=== PATIENT | female | born 1935 | race Caucasian/White ===

== ENCOUNTER 2017-03-13 05:25 | Emergency (ER) | payer OTHER ==
[~2017-03-13] VITALS: Ht 152.4 cm; Wt 61.2 kg
[~2017-03-13 05:25] MED LIST: ACETAMINOPHEN650 M5 PO; ADULT LOW DOSE81 MG PO; AMOXICILLIN500 M1 PO; ASPIRIN EC81 M1 PO; AUGMENTIN 875875 M1 PO; B12INJ IM; BONIVA150 MG PO; CARVEDILOL25 MG PO; CARVEDILOL6.25 MG PO; CEFTIN500 MG PO; CIPRO HC OTIC S10 ML OTIC; CRESTOR20 MG PO; DARVOCET-N 1001 EAC1 PO; FISH OIL 1,001000 MG PO; FISH OIL 500 M1 EACH PO; FUROSEMIDE 40 M40 M1 PO; HIBICLENS120 ML TP; HYDROCODON-ACE1 EAC7 PO; K-DUR 20 MEQ T20 MEQ PO; LEVOTHYROXIN0.025 MG PO; LIDODERM 5%1 PATCH TOP; LIPITOR 10 MG10 M1 PO; LISINOPRIL40 MG PO; LIVALO2 MG PO; MAG-OX 400 TAB400 MG PO; MAGNESIUM250 M1 PO; MEDROLDOSEPACK PO; NORVASC 5 MG TAB5 MG PO; OMEGA-3 + VITA1 EAC1 PO; OMEGA-31000 M1 PO; OMEGA-31000 MG PO; POTASSIUM20 PO; PREDNISONE 10 M10 M1 PO; PROAIR HFA8.5 GM IH; PROTONIX40 M1 PO; PROTONIX40 M2 PO; SYMBICORT160 MCG/4. INH; SYNTHROID25 MCG PO; TRAMADOL 50 MG50 MG PO; ULTRAM 50MG TAB50 MG PO; VERAPAMIL E.R240 M1 PO; VITAMIN D1000 UNI1 PO; XANAX 0.25 MG0.25 MG PO; XOPENEX 0.63 MG/3 ML IH; ZOFRAN4 MG PO; ZPAK PO; [UNRECOGNIZED DRUG - OTHER]
[2017-03-13 05:52] LABS: ABSOLUTE BASOPHILS 0.1 thou/uL (0.0-0.2); ABSOLUTE EOSINOPHILS 0.2 thou/uL (0.0-0.7); ABSOLUTE LYMPHOCYTES 1.5 thou/uL (0.8-5.3); ABSOLUTE MONOCYTES 0.7 thou/uL (0.0-1.2); ABSOLUTE NEUTROPHILS 6.2 thou/uL (1.6-8.1); BASOPHILS 1.1 %; EOSINOPHILS 2.1 %; HEMATOCRIT 43.9 % (37.0-47.0); HEMOGLOBIN 14.1 gm/dL (12.0-15.0); LYMPHOCYTES 17.1 %; MCH 29.4 pg (26.0-34.0); MCHC 32.1 g/dL (28.0-37.0); MCV 91.4 fL (80.0-100.0); MONOCYTES 7.8 %; MPV 9.3 fl. (7.2-11.1); NUCLEATED RBCS 0 /100WBC; PLATELET COUNT* 238 thou/uL (150-400); POLYS 71.9 %; WBC 8.6 thou/uL (4.0-11.0)
[2017-03-13 06:03] LABS: ANION GAP 6 mmol/L (7-16); CHLORIDE 101 mmol/L (98-107); CO2 30 mmol/L (21-32); CREATININE 0.9 mg/dL (0.6-1.3); GLUCOSE 109 mg/dL (70-99); POTASSIUM 4.4 mmol/L (3.5-5.1); SODIUM 137 mmol/L (136-145)
[2017-03-13 06:06] LABS: APTT 28.3 Seconds (25.0-31.3); INR 1.1
[2017-03-13 06:13] LABS: ALKALINE PHOSPHATASE 71 U/L (46-116); NT-PRO BRAIN NAT PEPTIDE 1354 pg/mL (<300); SGOT 20 U/L (15-37); SGPT 16 U/L (30-65); TOTAL BILIRUBIN 0.5 mg/dL (<0.1-1.0); TOTAL PROTEIN 6.9 g/dL (6.4-8.2); TROPONIN-I LEVEL <0.06 ng/mL (<0.06)
[2017-03-13 06:21] LABS: ALBUMIN 3.5 g/dL (3.4-5.0); BUN 12 mg/dL (7-18); CALCIUM 9.4 mg/dL (8.5-10.1); LIPASE 245 U/L (73-393)
[2017-03-13] MEDS ORDERED: ZPAK PO (06:26)
[2017-03-13] MEDS ORDERED: PREDNISONE 20 M20 M1 PO (06:26)
[2017-03-13] MEDS ORDERED: VENTOLIN HFA 1818 GM INH (06:28)
[2017-03-13 06:47] VITALS: BP 144/81
--- NOTE | 2017-03-13 14:45 | EKG ---
[place] [address] ELECTROCARDIOGRAM REPORT Name: ARLENE RAM Room: [facility]#: [id number] Admission: 03/13/17 Attend Phys: Discharge: 03/13/17 Date of : 39 Report #: [id number] THIS REPORT FOR: //name// [facility] ED Test Date: 2017-03-13 Test Time: 05:47:23 Pat Name: ARLENE RAM Department: Room: Gender: F [employer] Supervisor: JASMIN : [id number] Requested By: Edil Nunes Order Number: [id number] MD: Wilmar Lerma Measurements Intervals [place] Rate: 76 P: 90 DC: 182 QRS: 88 QRSD: 117 T: -4 QT: 393 QTc: 442 Interpretive Statements Sinus rhythm Multiple ventricular premature complexes Left atrial enlargement Incomplete right bundle branch block Low voltage, precordial leads Compared to ECG 05/10/2015 08:11:19 Ventricular premature complex(es) now present Atrial abnormality now present Low QRS voltage now present Electronically Signed On 03-13-2017 14:45:32 SENIOR JAVA SOFTWARE ENGINEER by Wilmar Lerma [email or web address] <ELECTRONICALLY SIGNED> By: Wilmar Lerma MD, FACC 03/13/17 1445 [id number] [id number] Wilmar Lerma MD, [facility] /EPI
== END 2017-03-13 06:50 | disposition home or self-care (01) ==
LOC: M.ERS 05:25
PROVIDERS: Family Medicine
DX: R05 Cough (principal); I10 Essential (primary) hypertension; K21.9 Gastro-esophageal reflux disease without esophagitis; J45.909 Unspecified asthma, uncomplicated; I25.10 Atherosclerotic heart disease of native coronary artery without angina pectoris; M06.9 Rheumatoid arthritis, unspecified; Z95.1 Presence of aortocoronary bypass graft; Z86.73 Personal history of transient ischemic attack (TIA), and cerebral infarction without residual deficits

== ENCOUNTER → 2018-12-20 | Outpatient (CLI) | payer OTHER ==
[~2018-12-20] MED LIST changes: +PREDNISONE 20 M20 M1 PO; +VENTOLIN HFA 1818 GM INH
== END ==
LOC: M.RAD 15:11
DX: M47.818 Spondylosis without myelopathy or radiculopathy, sacral and sacrococcygeal region (principal); M53.3 Sacrococcygeal disorders, not elsewhere classified

== ENCOUNTER → 2019-01-28 | Outpatient (CLI) | payer OTHER | LOC: M.RAD 16:30 | DX: R05 Cough (principal); I70.0 Atherosclerosis of aorta ==

== ENCOUNTER → 2019-04-20 | Outpatient (CLI) | payer MEDICARE ==
--- NOTE | 2019-04-20 17:34 | CARDNUC ---
[place] [address] CARDIAC NUCLEAR IMAGING REPORT Name: ARLENE RAM Room: [facility]#: [id number] Admission: 04/20/19 Attend Phys: Arlet Zuniga, Discharge: Date of : 39 Date of Service: 04/20/19 1732 Report #: [id number] THIS REPORT FOR: cc: Karuna Logan MD, Katrina MD Liston, Michael J. MD [facility] ~ APPROVED REPORT Study performed: 04/20/2019 14:57:30 Exam: Nuclear Stress Test Indication: Pre-Operative CV evaluation, Dyspnea, Chest pain. Patient Location: Out-Patient Stress Tech: Petrona Torres Stress Nurse: Irasema Villalobos R.N. Ht: 5 ft 0 in Wt: 140 lbs BSA: 1.60 m2 BMI: 27.33 Medical History Medical History: Angina, Carotid artery disease, CKD, Fatigue, HTN, Hyperlipidemia, SOB, Stroke/TIA, Dissection of thoracic aorta, LE edema. Medications: Amlodipine, ASA 81 Mg, Atorvastatin, Metoprolol. Allergies: No known drug allergies Cardiac Risk Factors: Age, FHX of CAD, FHX of CAD, Hyperlipidemia, SOB, Edema, Carotid Artery Disease. Pretest Chest Pain Characteristics: No chest pain Exercise History: Indeterminate Physical Disabilities: Pre-op clearance knee replacement, knee pain. Meds Held (24 hrs): Metoprolol, Amlodipine. Stress Test Details Stress Test: Pharmacologic stress testing performed using 0.4 mg of regadenoson per 5 mL given IV over 10 seconds. Reason for pharmacologic stress test: knee pain, Pre-op clearance for knee replacement.. HR Resting HR: 72 bpm Max Heart Rate (APMHR): 139 bpm Max HR Achieved: 101 bpm Target HR (85% APMHR): 118 bpm % of APMHR: 72 Recovery HR: 88 [place] [address] CARDIAC NUCLEAR IMAGING REPORT Name: ARLENE RAM Room: [facility]#: [id number] Admission: 04/20/19 Attend Phys: Arlet Zuniga, Discharge: Date of : 39 Date of Service: 04/20/19 1732 Report #: [id number] Resting BP: 162/103 mmHg Max BP: 187/89 mmHg ECG Resting ECG: Sinus Rhythm Stress ECG: Sinus Tachycardia ST Change: None Arrhythmia: None Recovery ECG: Sinus Rhythm Recovery ST Change: None Recovery Arrhythmia: None Clinical Reason for Termination: Completed protocol Stress Symptoms: Dyspnea, Dizziness. Exercise duration: 00 min 00 sec Exercise capacity: 1.00 METs The patient tolerated Lexiscan infusion without significant cardiac symptoms. Nurse Comments An 83 year old female presented in a wheelchair for a sitting Lexiscan r/t pre-op clearance for knee replacement, chest pain and dyspnea. Test tolerated. Recovery unremarkable with PO caffeine, effective. Patient was escorted via wheelchair by staff to [facility] for imaging. Patient was stable and stated she felt good at that time. Stress ECG Conclusion The baseline 12-lead EKG shows sinus rhythm with right bundle-branch block. There are inverted T waves noted without significant ST segment deviation. EKGs obtained during and post Lexiscan infusion show sinus rhythm and sinus tachycardia without significant ST segment changes when compared to baseline. There were no significant stress-induced arrhythmias. NM EXAM: Myocardial Perfusion REST/STRESS Imaging Protocol: Rest Tc-99m/Stress Tc-99m 1 day Resting Data Rest SPECT myocardial perfusion imaging was performed in supine position 30 minutes following the intravenous injection of 10.0 mCi of Tc-99m Sestamibi. Time of rest injection: 13:05 [place] [address] CARDIAC NUCLEAR IMAGING REPORT Name: YOARLENE J Room: [facility]#: [id number] Admission: 04/20/19 Attend Phys: Arlet Zuniga, Discharge: Date of : 39 Date of Service: 04/20/19 1732 Report #: [id number] The images were gated to evaluate regional wall motion and calculate left ventricular ejection fraction. Administration Route: IV Administration Site: Left AC Pharmacologic Stress Pharmacologic stress test was performed by injecting Regadenoson 0.4 mg IV push followed by the intravenous injection of 34.1 mCi of Tc-99m Sestamibi. Time of stress injection: 14:45 Administration Route: IV Administration Site: Left AC Gated Stress SPECT was performed 40 minutes after stress injection. The images were gated to evaluate regional wall motion and calculate left ventricular ejection fraction. Prone imaging was performed. Study Quality Study: Good Artifact: No artifact Study Data At rest, the left ventricular ejection fraction was 77%.. Post stress, the left ventricular ejection was 77%.. TID = 0.98. Perfusion Perfusion images obtained at rest and post Lexiscan stress show uniform uptake of the radioisotope throughout the myocardium without defect. Wall Motion Normal left ventricular wall motion. Nuclear Conclusion ECG Findings: negative for ischemia Clinical Findings: negative for ischemia Nuclear Findings: negative for ischemia Exercise Capacity: not assessed Left Ventricular Function: normal Risk Study: low Myocardial perfusion images show no defect to suggest infarct or ischemia. Left ventricular systolic function appears normal on gated studies. This [place] [address] CARDIAC NUCLEAR IMAGING REPORT Name: ARLENE RAM Room: [facility] AIMEE Kumar#: [id number] Admission: 04/20/19 Attend Phys: Arlet Zuniga, Discharge: Date of : 39 Date of Service: 04/20/19 1732 Report #: [id number] <Conclusion> The baseline 12-lead EKG shows sinus rhythm with right bundle-branch block. There are inverted T waves noted without significant ST segment deviation. EKGs obtained during and post Lexiscan infusion show sinus rhythm and sinus tachycardia without significant ST segment changes when compared to baseline. There were no significant stress-induced arrhythmias. <ELECTRONICALLY SIGNED> By: Wilmar Lerma MD, FACC 04/20/19 173 31 173 Wilmar Lerma MD, FACC /INF
== END ==
LOC: M.NUC 04-14 10:32
DX: Z01.818 Encounter for other preprocedural examination (principal); I45.10 Unspecified right bundle-branch block; R00.0 Tachycardia, unspecified; I10 Essential (primary) hypertension; I71.01 Dissection of thoracic aorta; I65.29 Occlusion and stenosis of unspecified carotid artery; G45.9 Transient cerebral ischemic attack, unspecified; E78.00 Pure hypercholesterolemia, unspecified